=== PATIENT | male | born 2000 | race Caucasian/White ===

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

== ENCOUNTER 2021-06-17 19:30 | Emergency (ER) | payer MEDICAID ==
[2021-06-17] MEDS ORDERED: LORazepam 1 MG Tab PO ONE (21:11)
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
[2021-06-17 22:39] LABS: ACETAMINOPHEN 0 ug/mL (10-30)
== END 2021-06-18 08:16 ==
LOC: JD.ED 19:30
DX: F32.A Depression, unspecified (principal); U07.1 COVID-19; Z88.0 Allergy status to penicillin; Z20.822 Contact with and (suspected) exposure to COVID-19
CPT/HCPCS: 36415; 80053; 80143; 80179; 80306; 80307; 84443; 85025; 87635; 99285; A9270; U0002